=== PATIENT | female | born 1995 | race Caucasian/White ===

== ENCOUNTER → 2016-07-19 | Outpatient (CLI) | payer OTHER ==
[~2016-07-19] MED LIST: COLACE 100MG C100 MG PO
== END ==
LOC: HEART 5 09:57
DX: R00.2 Palpitations (principal); I35.8 Other nonrheumatic aortic valve disorders; I07.1 Rheumatic tricuspid insufficiency

== ENCOUNTER 2016-08-23 01:13 | Inpatient (IN) | payer OTHER ==
[~2016-08-23] VITALS: Ht 157.5 cm; Wt 89.8 kg
[2016-08-23 06:23] LABS: HEMOGLOBIN 10.8 gm/dl (12.3-15.3); RED BLOOD COUNT 3.89 M/UL (4.00-5.10)
== END 2016-08-24 13:51 | disposition home or self-care (01) | DRG 775 ==
LOC: GENOP 01:13 → OB 06:06
PROVIDERS: Obstetrics & Gynecology; ADMIT Obstetrics & Gynecology
PROC: 10E0XZZ Delivery of Products of Conception, External Approach (ICD-10-PCS; principal; 2016-08-23)
PROC: 10907ZC Drainage of Amniotic Fluid, Therapeutic from Products of Conception, Via Natural or Artificial Opening (ICD-10-PCS; 2016-08-23)
DX: O69.81X0 Labor and delivery complicated by cord around neck, without compression, not applicable or unspecified (principal); Z3A.40 40 weeks gestation of pregnancy; Z37.0 Single live birth
CPT/HCPCS: 36415; 51702; 81001; 82800; 85014; 85018; 85025; J2590; J2795; J7120

== ENCOUNTER 2020-04-17 09:57 | Emergency (ER) | payer OTHER ==
[2020-04-17] MEDS ORDERED: CEFUROXIME500 MG PO (11:24)
[2020-04-17] MEDS ORDERED: PYRIDIUM200 MG PO (11:24)
== END 2020-04-17 11:35 | disposition home or self-care (01) ==
LOC: ER1 09:57
DX: N39.0 Urinary tract infection, site not specified (principal); Z90.49 Acquired absence of other specified parts of digestive tract; Z88.1 Allergy status to other antibiotic agents; Z88.0 Allergy status to penicillin; Z87.42 Personal history of other diseases of the female genital tract
CPT/HCPCS: 81001; 84703; 87077; 87086; 87186; 99284

== ENCOUNTER → 2020-11-23 | Outpatient (CLI) | payer OTHER ==
[~2020-11-23] MED LIST changes: +CEFUROXIME500 MG PO; +PYRIDIUM200 MG PO
== END ==
LOC: MRI 10:30
DX: R00.2 Palpitations (principal); R51.9 Headache, unspecified
CPT/HCPCS: 70551

== ENCOUNTER → 2020-12-07 | Outpatient (CLI) | payer OTHER | LOC: HEART 5 09:59 | DX: R00.2 Palpitations (principal) ==